=== PATIENT | female | born 1995 | race Caucasian/White ===

== ENCOUNTER 2020-06-01 16:00 | Emergency (ER) | payer MEDICAID ==
[~2020-06-01] VITALS: Ht 157.5 cm; Wt 61.4 kg
[2020-06-01 16:07] VITALS: BP 123/75
== END 2020-06-01 17:03 | disposition home or self-care (01) ==
LOC: EMS 16:11
DX: U07.1 COVID-19 (principal); F17.210 Nicotine dependence, cigarettes, uncomplicated; Z88.6 Allergy status to analgesic agent
CPT/HCPCS: 99283; U0003